=== PATIENT | male | born 1960 | race Caucasian/White ===

== ENCOUNTER 2023-09-23 00:32 | Emergency (ER) | payer BC, SELFPAY ==
[2023-09-23 00:33] VITALS: BP 188/92
[2023-09-23 00:44] VITALS: BMI 34.7
--- NOTE | 2023-09-23 00:49 | ED.GENMED ---
History of Present Illness
General
Chief Complaint: Abdominal Pain
Source: patient
Exam Limitations: none
Time Seen by Provider: 09/23/23 00:39
Travel History
Have you had any contact with someone who has COVID-19?: No
Do you have any symptoms of coronavirus? Fever > 100 degrees, chills, cough, shortness of breath, sore throat, loss of taste or smell, muscle aches, or headache?: No
History of Present Illness
History of Present Illness:
This is a 63 year old male that comes in with c/o abd pain. States that he started around 2 pm today with lower abd pain. States that he did vomit at small amount at this time. States that at first it felt like a pulled muscle. States that thein
about 2-3 hours ago he started chills and his abd pain was worse. States that this comes in waves. Denies any fever, chest pain, SOB, nausea, diarrhea, headache, dizziness, urinary burning.
Past History
Past History
ED Past Medical History: HTN, Hypercholesterolemia, AL and Other (diverticulitis, kidney stones,)
ED Past Surgical History: Other (LENS REPLACEMENT R and L EYE 2007, LASIC SURGERY L EYE 2007, BRACHIAL CLEFT CYST 1977, HERNIA REPAIR INFANT, UNSUCCESFUL PTCA RCA 05/2010, Retina surgery both eyes)
Social History
Tobacco: Non-smoker
Alcohol: Occasional
Personal:
Living: with family
Employment: Employed (CPA)
Review of Systems
Review of Systems
All Other Systems: ROS reviewed and negative except as documented in HPI and ROS
Constitutional: Reports chills; Denies fever
EENT: Reports no symptoms
Respiratory: Denies cough or trouble breathing
Cardiac: Reports no symptoms; Denies chest pain
ABD/GI: Reports abdominal pain and vomiting (slightly once); Denies nausea or diarrhea
: Reports no symptoms; Denies dysuria, frequency or urgency
Musculoskeletal: Reports no symptoms
Skin: Reports no symptoms
Neurological: Reports no symptoms; Denies dizzy or headache
Psychiatric: Reports no symptoms
Phy Exam
General Physical Exam
General Presentation: no apparent distress
General age: appears stated age
General Skin: warm and dry
General Habitus: normal
General Mental: alert
General Hydration: appears well hydrated
ENT Exam
ENT Exam: TM's normal, pharynx normal and neck supple
Eye Exam
Eye Exam: EOMI
Cardiovascular Exam
Cardiovascular Exam: regular rate/rhythm, no edema, no murmur and normal peripheral pulses
Pulmonary Exam
Pulmonary Exam: lungs clear, no respiratory distress, no rales, chest non tender, no crackles, no rhonchi, no wheezing and no cough
Gastrointestinal Exam
Gastrointestinal Exam: normal bowel sounds, soft, no organomegaly, no pulsatile mass, non distended and tender (Left lower and suprapubic tenderness with palpation)
Musculoskeletal Exam
Musculoskeletal Exam: full ROM and no edema
Skin Exam
Skin Exam: normal color, warm/dry, no rash and no petechia
Psychiatric Exam
Psychiatric Exam: normal mood/affect
Course
Orders/Labs/Results
Orders:
Orders
09/23/23 00:43
IV Insert/Care/Rem.- Treatment PRN
09/23/23 00:48
0.9% Sodium Chloride 1000 ml [Nss] 1,000 ml IV BOLUS
09/23/23 00:49
CT Abd/pelvis W Iv Cont Urgent
Comment:
Reason For Exam: lEFT LOWER ABD PAIN
09/23/23 00:50
Complete Blood Count/With Diff Urgent
Comprehensive Metabolic Panel Urgent
Lipase Urgent
Urinalysis Reflex To Culture Urgent
Date Specimen was Collected: 09/23/23
Time Specimen was Collected: 00:43
Urine Microscopic Reflex Cult Urgent
Abnormal Lab Results
09/23/23
00:50
WBC 12.0 H 10^3/uL
(4.8-10.8)
MCH 31.5 H pg
(27.0-31.0)
MPV 11.4 H fL
(7.4-10.4)
Absolute Neuts (auto) 9.3 H 10^3/uL
(1.4-6.5)
Absolute Monos (auto) 1.0 H 10^3/uL
(0.1-0.6)
Neutrophils % 77.4 H %
(42.2-75.2)
Lymphocytes % 13.2 L %
(20.5-51.1)
Chloride 108 H mmol/L
(98-107)
BUN 23 H mg/dl
(9-20)
Glucose 121 H mg/dl
(70-99)
Ur Occult Blood Reflex 1+ A
(Negative)
Urine RBC 3-6 A /HPF
(0-2)
Urine Bacteria (Reflex) Few A
(Negative)
Urine Glucose 3+ A
(Negative)
09/23/23 00:50
09/23/23 00:50
Leukocytosis, Dehydration. Glucose nonfasting. Urine negative for infection.
Vital Signs
Initial and Last Documented VS:
Initial Vital Signs
Temp Pulse Resp BP Pulse Ox
98.8 F 58 22 188/92 98
09/23/23 00:33 09/23/23 00:33 09/23/23 00:33 09/23/23 00:33 09/23/23 00:33
Last Documented Vital Signs
Temp Pulse Resp BP Pulse Ox
98.8 F 58 22 188/92 98
09/23/23 00:33 09/23/23 00:33 09/23/23 00:33 09/23/23 00:33 09/23/23 00:33
MDM/Problems Addressed
Differential Diagnosis Includes:
Diverticulitis, UTi
MDM/Problems Addressed:
This is a 63 year old male that comes in with c/o lower abd pain that started today. Patient states that he vomited slightly when this started at 2pm today. States that he had chills about 2-3 hours ago and felt that the pain was getting worse.
Will get labs, CT scan, Give IV fluids and get urine.
Back into see patient. Explained that his CT does show sigmoid diverticulitis. Will start patient on Augmentin as he was a little uncertain about using Levaquin and Flagyl due to his medication he is using for his eyes. Explained that his blood
work also shows dehydration. Patient encouraged to increase his water intake daily. Will discharge patient home on Augmentin. Patient to return with fever, increased or changing pain.
Chronic conditions affecting care:
history of Diverticulitis,
Acute Exacerbation and/or Progression of Chronic Illness:
Diverticulitis
*Radiology
Radiology exam reviewed: radiology read reviewed (CT night hawk- There is new acute sigmoid diverticulitis. No evidence of perforation or abscess. Inflammation tracts into the sigmoid mesocolon around the inferior mesenteric vein branches but there
is no evidence of venous thrombosis. Normal appendix. No bowel obstruction. No obstructive uropathy. )
*Pulse Oximetry
Patient hypoxic: no
*EKG
Interpreted by ED Provider?: NA
Rate: EKG- N/A
*Sql Data Architect Interpretation
Rate: Sql Data Architect- N/A
*Critical Care Note
Total Time (30-74mins, 75-104mins- exclusive of procedures): Not Applicable
ED Attending Note
-
Portions of this chart may have been created with voice recognition software.� Occasional wrong word or��sound alike� substitutions may have occurred due to the inherent limitations of voice recognition software.
Discharge Plan
Departure
Patient Disposition: Home (Routine Discharge)
Date of Disposition: 09/23/23
Time of Disposition: 02:26
Patient with high blood pressure during this ER visit?: Yes
Condition: Good
Covid-19: Not Applicable
Discharge Problem:
Sigmoid diverticulitis
Instructions: Diverticulitis (DC), BLOOD PRESSURE
Prescriptions:
New
amoxicillin-pot clavulanate 875-125 mg tablet
1 tab PO BID Qty: 19 0RF
No Action
levothyroxine [Synthroid] 150 MCG tablet
125 mcg PO DAILY
metoprolol succinate [Toprol XL] 50 MG tablet extended release 24 hr
50 mg PO DAILY
simvastatin 40 MG tablet
40 mg PO HS
valsartan [Diovan] 320 MG tablet
320 mg PO DAILY
aspirin 81 MG tablet,chewable
81 mg PO DAILY
levofloxacin 500 MG tablet
500 mg PO DAILY Qty: 10 0RF
metronidazole 500 MG tablet
500 mg PO TID Qty: 30 0RF
ciprofloxacin HCl 500 MG tablet
500 mg PO BID Qty: 19 0RF
metronidazole 500 MG tablet
500 mg PO TID Qty: 29 0RF
oxycodone-acetaminophen 5 MG/325 MG tablet
1 tab PO Q4HPRN PRN (Reason: severe pain) Qty: 20 0RF
Rx Instructions:
DO NOT DRIVE OR TAKE A BATH ALONE WHILE TAKING THIS MEDICINE
Referrals:
Rolando Covarrubias MD [Family Provider] - Call in 1-3 days for appt
Activity Restrictions/Additional Instructions:
As discussed, your blood work shows you are a little dehydration. Please increase your water intake to 8-8oz glasses daily. Your urine is negative for infection. Your CT shows that you have diverticulitis. You have been given your first dose of
antibiotic here and your prescription has been sent to your Pharmacy. Please take as directed until finished. Follow up with the family doctor for recheck. You may also use Tylenol 1000mg every 6 hours for pain. IF YOU HAVE INCREASED OR CHANGING
PAIN, OR YOU HAVE ANY OTHER CONCERNS PLEASE RETURN TO THE EMERGENCY ROOM
Interventions
Interventions:
*Risk Screen - Suicide Last Done: 09/23/23 00:33
*General Assessment Last Done: 09/23/23 00:44
*Neglect/Abuse Screening Last Done: 09/23/23 00:33
ED- Fall Risk Assessment Last Done: 09/23/23 00:44
*ED COVID-19 Vaccine History Last Done: 09/23/23 00:44
MJ-Kwgzva-Nyjynsxmnc Assessment Last Done: 09/23/23 00:44
[2023-09-23] MEDS: NSS 1000 IV (01:00)
[2023-09-23 01:18] LABS: % Basophils 0.3 % (0-2); % Eosinophils 0.4 % (0-6); % Immature Granulocytes 0.3 % (0-0.5); % Lymphocytes 13.2 % (20.5-51.1); % Monocytes 8.4 % (1.7-9.3); % Neutrophils 77.4 % (42.2-75.2); Absolute Eosinophils 0.1 10^3/uL (0-0.7); Absolute Lymphocytes 1.6 10^3/uL (1.2-3.4); Absolute Neutrophils 9.3 10^3/uL (1.4-6.5); Hematocrit 46.8 % (39.0-52.0); Hemoglobin 16.5 g/dL (13.0-18.0); Mean Corp Hgb Conc. 35.3 g/dL (33.0-37.0); Mean Corpuscular Hgb 31.5 pg (27.0-31.0); Mean Corpuscular Volume 89.3 fL (80.0-94.0); Mean Platelet Volume 11.4 fL (7.4-10.4); Nucleated Red Blood Cells % 0 % (-); Platelet Count 130 10^3/uL (130-400); Red Blood Cell Count 5.24 10^6/uL (4.70-6.10); Red Cell Dist. Width 13.2 % (11.5-14.5)
[2023-09-23 01:25] LABS: Urine Albumin Trace (Neg - Trace); Urine Bilirubin Negative (Negative); Urine Character Clear (Clear); Urine Color Yellow; Urine Glucose 3+ (Negative); Urine Ketone Negative (Negative); Urine Leukocyte Negative (Negative); Urine Nitrite Negative (Negative); Urine Occult Blood 1+ (Negative); Urine Specific Gravity 1.025 (<1.030); Urine Urobilinogen Negative (Neg - 1+)
[2023-09-23 01:29] LABS: ALT (SGPT) 42 U/L (0-50); AST (SGOT) 36 U/L (17-59); Alkaline Phosphatase 96 U/L (38-126); Blood Urea Nitrogen 23 mg/dl (9-20); Calcium 8.9 mg/dl (8.4-10.2); Carbon Dioxide 29 mmol/L (22-30); Chloride 108 mmol/L (98-107); Estimated Creatinine Clearance 87 ml/min; Glucose 121 mg/dl (70-99); Lipase 101 U/L (23-300); Potassium 3.9 mmol/L (3.5-5.1); Sodium 140 mmol/L (135-145); Total Bilirubin 0.8 mg/dl (0.2-1.3); Total Protein 6.8 g/dl (6.3-8.2); eGFR > 60.00
[2023-09-23 02:01] LABS: Urine Bacteria Few (Negative); Urine White Cell 0-2 /HPF (0-5)
[2023-09-23] MEDS: AUGMENTIN 875 MG/125 MG 1 TABLET PO (02:42)
[2023-09-23 02:43] VITALS: BP 147/92
== END 2023-09-23 02:50 | disposition home or self-care (01) ==
LOC: EMR 00:32
PROVIDERS: Clinical Nurse Specialist Family Health; EMERGENCY PHYSICIAN Student in an Organized Health Care Education/Training Program; FAMILY PHYSICIAN Internal Medicine
DX: K57.32 Diverticulitis of large intestine without perforation or abscess without bleeding (principal); I10 Essential (primary) hypertension; E86.0 Dehydration; Z87.442 Personal history of urinary calculi
CPT/HCPCS: 99284; 96360; 74177; 80053; 81003; 81015; 83690; 85025; Q9967

== ENCOUNTER 2025-08-02 22:19 | Emergency (ER) | payer MEDICARE, OTHER, SELFPAY ==
[2025-08-02 22:27] VITALS: BP 166/86
[2025-08-02 22:58] LABS: Hematocrit 43.2 % (39.0-52.0); Hemoglobin 14.9 g/dL (13.0-18.0); Mean Corp Hgb Conc. 34.5 g/dL (33.0-37.0); Mean Corpuscular Volume 90.0 fL (80.0-94.0); Nucleated Red Blood Cells % 0 % (-); Platelet Count 123 10^3/uL (130-400); Red Cell Dist. Width 13.0 % (11.5-14.5)
[2025-08-02 23:03] LABS: ALT (SGPT) 22 U/L (0-50); AST (SGOT) 27 U/L (17-59); Albumin 3.8 g/dl (3.5-5.0); Alkaline Phosphatase 67 U/L (38-126); Blood Urea Nitrogen 22 mg/dl (9-20); Calcium 8.8 mg/dl (8.4-10.2); Carbon Dioxide 27 mmol/L (22-30); Chloride 105 mmol/L (98-107); Glucose 119 mg/dl (70-99); Lipase 151 U/L (23-300); Potassium 3.7 mmol/L (3.5-5.1); Sodium 137 mmol/L (135-145); Total Protein 6.8 g/dl (6.3-8.2); eGFR > 60.00
[2025-08-02 23:09] LABS: Troponin I < 0.012 ng/ml
[2025-08-03 00:10] VITALS: BP 118/82
[2025-08-03 00:11] VITALS: BMI 30.8
--- NOTE | 2025-08-03 00:53 | ED.GENMED ---
History of Present Illness
General
Chief Complaint: Chest Pain
Source: patient
Exam Limitations: none
Time Seen by Provider: 08/03/25 00:44
History of Present Illness
History of Present Illness:
See MDM
Past History
Past History
ED Past Medical History: HTN, Hypercholesterolemia, DC and Other (diverticulitis, kidney stones,)
ED Past Surgical History: Other (LENS REPLACEMENT R and L EYE 2007, LASIC SURGERY L EYE 2007, BRACHIAL CLEFT CYST 1977, HERNIA REPAIR INFANT, UNSUCCESFUL PTCA RCA 05/2010, Retina surgery both eyes)
Social History
Tobacco: Non-smoker
Alcohol: Occasional
Personal:
Living: with family
Employment: Employed (CPA)
Phy Exam
Physical Exam
Physical Exam:
See MDM
Scores
Heart Score for Chest Pain Patients
STEMI patient?: No
History: Slightly or Non-Suspicious
ECG: Normal
Age: >/= 65 years
Risk Factors: >/= 3 Risk Factors or History of CAD
Troponin: </= Normal Limit
Heart Score for Chest Pain Patients: 4
Heart Score Risk: 20.3% MACE over next 6 weeks
Course
Orders/Labs/Results
Orders:
Orders
08/02/25 22:20
EKG [Electrocardiogram (*1)] Urgent
Reason for Study: Chest Pain
EKG- Treatment ONCE
08/02/25 22:30
Cardiac Monitoring- Treatment ONCE
IV Insert/Care/Rem.- Treatment PRN
O2 Therapy [RESP] Urgent
Titrate/Wean O2 to maintain O2 sat greater than (%): 90
Special Instructions: Maintain sats >/=90%
Pulse Ox/spot Check [RESP] Urgent
Quantity: 1
Special Instructions: ON ROOM AIR
08/02/25 22:39
Complete Blood Count/With Diff Urgent
Comprehensive Metabolic Panel Urgent
Lipase Urgent
Troponin I Urgent
Abnormal Lab Results
08/02/25
22:39
Plt Count 123 L 10^3/uL
(130-400)
MPV 11.9 H fL
(7.4-10.4)
Absolute Monos (auto) 0.7 H 10^3/uL
(0.1-0.6)
Lymphocytes % 18.4 L %
(20.5-51.1)
Monocytes % 10.4 H %
(1.7-9.3)
BUN 22 H mg/dl
(9-20)
Glucose 119 H mg/dl
(70-99)
08/02/25 22:39
08/02/25 22:39
Vital Signs
Initial and Last Documented VS:
Initial Vital Signs
Temp Pulse Resp BP Pulse Ox
97.7 F 84 20 166/86 97
08/02/25 22:27 08/02/25 22:27 08/02/25 22:27 08/02/25 22:27 08/02/25 22:27
Last Documented Vital Signs
Temp Pulse Resp BP Pulse Ox
98.2 F 84 16 166/86 97
08/03/25 00:12 08/02/25 22:27 08/03/25 00:12 08/02/25 22:27 08/02/25 22:27
MDM/Problems Addressed
Differential Diagnosis Includes:
Note:
CHIEF COMPLAINT(S)
Chest pain.
HISTORY OF PRESENT ILLNESS
The patient is a 65-year-old male with a history of diverticulitis and CAD presenting with chest discomfort.. The patient presented with chest pain, which started in the afternoon around 5 oclock. He experienced a stomach bug with vomiting and
diarrhea for the past couple of days, likely contracted at an airport in [place], with substantial improvement after rest and hydration. The patient attributed his chest pain to indigestion following his first meal of the day at 10 a.m. today. No
current abdominal pain was noted during the visit. The patient expressed concern due to a past significant cardiac event and wanted to ensure it was not heart-related. While in the waiting room, patient states he had several large belching episodes
which resolved his symptoms.
PAST MEDICAL AND SURGICAL HISTORY
- History of diverticulitis diagnosed approximately 16 years ago.
- Past cardiac event with a lower artery 'corkscrew' abnormality after experiencing chest pain during physical activity.
EXTERNAL RECORDS REVIEWED
The patients EKG was reviewed and determined to be normal. Blood work was also conducted and revealed no cardiac issues.
PHYSICAL EXAM
General: Alert, no acute distress. Lying in bed comfortably
Skin: Warm, dry.
Head: Normocephalic, atraumatic
Neck: Appears supple, trachea midline.
Eyes, Ears, Nose, Mouth, and Throat: Moist mucous membranes
Cardiovascular: No signs of cyanosis. Regular rate and rhythm
Respiratory: Respirations are non-labored. Lungs clear
Abdomen: Non-distended and nontender
Musculoskeletal: No deformities
Neurological: No focal neurological deficit observed.
Psychiatric: Cooperative, appropriate mood and affect.
ELECTROCARDIOGRAM (EKG)
My independent EKG interpretation is normal.
SUMMARY OF ENCOUNTER
The patient presented with chest pain following gastrointestinal symptoms attributed to a stomach bug contracted while traveling. After discussions and evaluations in the emergency department, including normal blood work and EKG, it was determined
that the chest pain was more likely due to indigestion rather than cardiac or pulmonary causes. The patient received intravenous fluids and showed improvement in symptoms.
DISPOSITION
Discharge.
MEDICAL DECISION MAKING
-Complexity of Data Reviewed: History of diverticulitis and prior cardiac event.
-Data:
Category 1
- Reviewed normal EKG and blood work.
-Risk:
Consideration of Admission/Observation: Escalation of care including admission/observation was considered given the complexity and risk of the patients presenting complaint, and exam findings. However, ultimately, I feel the patient is safe for
outpatient management with close follow-up. Reasoning: Work-up reassuring, does not reveal any acute life/organ-threatening processes, patients symptoms well controlled upon reevaluation, reexamination is reassuring, vitals are stable, patient
agreeable with discharge, and reliable for follow-up.
DIAGNOSIS
- Chest pain, unspecified (R07.9)
- Gastroenteritis and colitis, unspecified (A09.9)
*Pulse Oximetry
SaO2: 97
Oxygen Mode of Delivery: Room air
Patient hypoxic: no
*EKG
Interpretation: normal (Sinus rhythm at 60 bpm, normal axis, no ST elevation)
*Critical Care Note
Total Time (30-74mins, 75-104mins- exclusive of procedures): Not Applicable
ED Attending Note
-
Portions of this chart may have been created with voice recognition software.� Occasional wrong word or��sound alike� substitutions may have occurred due to the inherent limitations of voice recognition software.
Discharge Plan
Departure
Patient Disposition: Home (Routine Discharge)
Date of Disposition: 08/03/25
Time of Disposition: 00:57
Patient with high blood pressure during this ER visit?: Yes
Discharge Problem:
Chest pain
Instructions: BLOOD PRESSURE, Chest Pain PCP Follow Up
Prescriptions:
No Action
simvastatin 40 MG tablet
40 mg PO HS
aspirin 81 MG tablet,chewable
81 mg PO DAILY
atorvastatin 40 mg Tablet
40 mg PO DAILY
levothyroxine 137 mcg Tablet
137 mcg PO DAILY
allopurinol 300 mg Tablet
300 mg PO DAILY
irbesartan 300 mg Tablet
300 mg PO HS
diltiazem HCl 240 mg Tablet Extended Release 24 Hr
240 mg PO HS
tirzepatide 15 mg/0.5 mL Pen Injector
15 mg SC QWEEK
Rx Instructions:
sundays
Referrals:
Rolando Covarrubias MD [Family Provider, Internal Medicine]
Activity Restrictions/Additional Instructions:
Please return for any worsening symptoms.
You may return at any time if you have further concerns.
Please follow up with your doctor at the first available appointment, preferably this week.
Thank you for choosing [facility].
Interventions
Interventions:
*General Assessment Last Done: 08/03/25 00:12
*Neglect/Abuse Screening Last Done: 08/02/25 22:27
*ED COVID-19 Vaccine History Last Done: 08/03/25 00:12
*ED Influenza Vaccine History Last Done: 08/03/25 00:12
[facility] Risk Assessment Tool Last Done: 08/03/25 00:12
*Risk Screen - Suicide (C-SSRS) Last Done: 08/02/25 22:27
ED- Cardiac Assessment Last Done: 08/03/25 00:12
Discharge Date and Time
Print Language: SAMI
== END 2025-08-03 01:15 | disposition home or self-care (01) ==
LOC: EMR 22:19
PROVIDERS: EMERGENCY PHYSICIAN Student in an Organized Health Care Education/Training Program; FAMILY PHYSICIAN Internal Medicine; REFERRING PHYSICIAN Internal Medicine Cardiovascular Disease
DX: R07.9 Chest pain, unspecified (principal); I10 Essential (primary) hypertension; I25.10 Atherosclerotic heart disease of native coronary artery without angina pectoris; E78.00 Pure hypercholesterolemia, unspecified; I25.2 Old myocardial infarction; Z79.82 Long term (current) use of aspirin
CPT/HCPCS: 99284; 80053; 83690; 84484; 85025; 93005